=== PATIENT | female | born 1955 | race Caucasian/White ===

== ENCOUNTER 2022-06-15 11:24 | Emergency (ER) | payer OTHER ==
[~2022-06-15] VITALS: Ht 156.2 cm; Wt 119.7 kg
[2022-06-15 11:40] VITALS: BP 159/91
--- NOTE | 2022-06-15 12:24 | NUR ---
pt ambulated to bed 05
--- NOTE | 2022-06-15 13:00 | NUR ---
67YO FEMALE PT C/O INCREASED CONSTANT PELVIC AND VAGINAL PAIN [id number]. PAIN AT MOST ON URINATION AND STATES "BALL" COMING OUT OF VAGINAL AREA . STATES MILD RELIEF AFTER LAYING FLAT. REPORTS ONGOING S/S FOR ABOUT 4 YEARS AND STATES SURGERY FOR UTERINE PROLAPSE WAS DENIED BY INSURANCE. NOTES MILD V BLEEDING AND DECREASE IN APPETITE . DENIES N/V/D, FEVER , CHILLS OR SOB. PT AAOX4, HOB POSITIONED PER COMFORT. INDONESIAN SPEAKING HX: HTN, ASTHMA NKA
--- NOTE | 2022-06-15 15:37 | NUR ---
Female [employer] Super[employer] accompanied female patient for Pelvic Exam.
[2022-06-15] MEDS ORDERED: IBUPROFEN 600 MG TAB PO ONE (15:45)
[2022-06-15 16:24] LABS: APPEARANCE,URINE SL CLOUDY (CLEAR); BILIRUBIN,URINE NEGATIVE (NEGATIVE); BLOOD, URINE 2+ (NEGATIVE); COLOR,URINE YELLOW (YELLOW); LEUKOCYTE ESTERASE ,URINE 3+ (NEGATIVE); NITRITE, URINE POSITIVE (NEGATIVE); UGLUCOSE NEGATIVE (NEGATIVE)
[2022-06-15 16:40] LABS: RBC,URINE 11-20 (MOD) /HPF (0-5); WBC,URINE 16-25 (MOD) /HPF (0-5)
[2022-06-15 16:41] LABS: OTHER CASTS, URINE None Seen /LPF (None Seen)
[2022-06-15] MEDS ORDERED: NITR100C7 PO (16:43)
[2022-06-15] MEDS ORDERED: IBUP-2218 PO (16:43)
[2022-06-15] MEDS ORDERED: NITROFURANTOIN 100 MG CAP PO SCH (16:45)
--- NOTE | 2022-06-15 16:48 | NUR ---
not enough urine provided for cultures. made aware. pt provided w/ water
--- NOTE | 2022-06-15 17:25 | NUR ---
PT MOVED TO CHAIR A
[2022-06-15 18:44] VITALS: BP 134/58
--- NOTE | 2022-06-15 18:46 | NUR ---
Patient discharged with v/s stable. Written and verbal after care instructions given and explained. Patient verbalized understanding. Ambulatory with steady gait. All questions addressed prior to discharge. Advised to follow up with PMD.
== END 2022-06-15 18:46 | disposition home or self-care (01) ==
LOC: MED 11:24
DX: N39.0 Urinary tract infection, site not specified (principal); N81.4 Uterovaginal prolapse, unspecified; E11.9 Type 2 diabetes mellitus without complications; J45.909 Unspecified asthma, uncomplicated; I10 Essential (primary) hypertension; Z79.4 Long term (current) use of insulin; Z79.899 Other long term (current) drug therapy
CPT/HCPCS: 81001; 87086; 99285